=== PATIENT | male | born 1965 | race Caucasian/White ===

== ENCOUNTER 2017-04-06 18:17 | Emergency (ER) | payer BC ==
[~2017-04-06] VITALS: Ht 188 cm; Wt 121.1 kg
--- NOTE | ~2017-04-06 | EKG ---
[address] [employer] [place] [address] ELECTROCARDIOGRAM REPORT Name: TAISHA SANTIAGO Ricci TAPIA Room #: [facility]#: [id number] Admission: 04/06/17 Attend Phys: Discharge: 04/06/17 Date of : 67 Report #: [id number] THIS REPORT FOR: //name// [facility] ED Test Date: 2017-04-06 Test Time: 18:34:16 Pat Name: TAISHA SANTIAGO Department: Room: Gender: M [employer] Professional: [id number] : 1965 Requested By: Treva Morrison Order Number: [id number] MD: Bryce Soni Measurements Intervals [place] Rate: 82 P: 33 [place]: 173 QRS: -53 QRSD: 100 T: 32 QT: 371 QTc: 434 Interpretive Statements Sinus rhythm Abnormal R-wave progression, late transition Compared to ECG 03/08/2014 08:33:57 No significant change was found Electronically Signed On 04-07-2017 13:54:03 CDT by Bryce Soni [email or web address] <ELECTRONICALLY SIGNED> By: Bryce Soni MD, [facility] 04/07/17 1354 33 33 Bryce Soni MD, [facility] /EPI
[~2017-04-06 18:17] MED LIST: ACID CONTROL20 MG PO; CALCIUM 500 +1 EAC5 PO; FENOFIBRATE160 MG PO; FISH OIL 1,0001 EAC5 PO; LIPITOR20 MG PO; LOSARTAN-HCTZ1 EAC2 PO; LOSARTAN-HCTZ1 EACH PO; MUCUS RELIEF C400 MG PO; MULTIVITAMINS PO; NASONEX17 GM NASAL; TRICOR48 MG; UNKNOWN BP MED; XARELTO15 MG PO
[2017-04-06] MEDS ORDERED: COUMADIN 1MG TAB1 M1 PO (18:24)
[2017-04-06 18:45] LABS: BASOPHILS 1.2 % (0.0-2.0); EOSINOPHILS 0.9 % (0.0-3.0); HEMATOCRIT 42.5 % (42.0-52.0); HEMOGLOBIN 14.7 gm/dL (14.0-18.0); LYMPHOCYTES 18.7 % (24.0-44.0); MCH 30.5 pg (26.0-34.0); MCHC 34.5 g/dL (28.0-37.0); MCV 88.5 fL (80.0-100.0); MONOCYTES 8.2 % (1.0-8.0); PLATELET COUNT 194 thou/uL (150-400); RDW 14.9 % (10.5-14.5); WBC 4.2 thou/uL (4.0-11.0)
[2017-04-06 18:46] LABS: ANION GAP 8 mmol/L (7-16); BUN 12 mg/dL (7-18); CALCIUM 9.9 mg/dL (8.5-10.1); CHLORIDE 105 mmol/L (98-107); CO2 28 mmol/L (21-32); CREATININE 1.5 mg/dL (0.7-1.3); GLUCOSE 105 mg/dL (74-106); POTASSIUM 3.8 mmol/L (3.5-5.1); SODIUM 141 mmol/L (136-145)
[2017-04-06 18:48] LABS: MANUAL DIFF NO
[2017-04-06 18:55] LABS: TROPONIN-I < 0.04 ng/mL (<0.04-0.07)
[2017-04-06 18:56] LABS: APTT 36.1 Seconds (24.5-32.8); INR 2.7; PROTIME 27.3 Seconds (9.3-11.4)
== END 2017-04-06 23:01 | disposition home or self-care (01) ==
LOC: ER 18:17
PROVIDERS: Emergency Medicine
DX: R07.9 Chest pain, unspecified (principal); R06.02 Shortness of breath; I10 Essential (primary) hypertension; E78.00 Pure hypercholesterolemia, unspecified; F10.99 Alcohol use, unspecified with unspecified alcohol-induced disorder; Z98.890 Other specified postprocedural states; Z88.8 Allergy status to other drugs, medicaments and biological substances

== ENCOUNTER → 2020-05-25 | Outpatient (CLI) | payer BC ==
[~2020-05-25] MED LIST changes: +COUMADIN 1MG TAB1 M1 PO
== END ==
LOC: SJCVCIMAG 05-24 09:23
PROVIDERS: ATTEND Internal Medicine
DX: I08.8 Other rheumatic multiple valve diseases (principal); I45.10 Unspecified right bundle-branch block; I49.3 Ventricular premature depolarization; R00.0 Tachycardia, unspecified

== ENCOUNTER → 2021-02-03 | Outpatient (CLI) | payer BC | LOC: SJCVCIMAG 10:23 | PROVIDERS: ATTEND Internal Medicine | DX: I07.1 Rheumatic tricuspid insufficiency (principal) ==